=== PATIENT | female | born 1940 | race Caucasian/White ===

== ENCOUNTER 2019-11-15 21:28 | Inpatient (IN) ==
[2019-11-15] MEDS ORDERED: 0.9 % Sodium Chloride 1,000 ML IVC ONE (21:57)
[2019-11-15] MEDS ORDERED: Piperacillin/Tazobactam 3.375 GM in Water for inj. (sterile) 20 ML IVP ONE (21:57)
[2019-11-15] MEDS ORDERED: Isovue-370 500 ML BOTTLE IVP ONE (22:02)
[2019-11-15] MEDS ORDERED: Piperacillin/Tazobactam 3.375 GM in 0.9 % Sodium Chloride Mini Bag 100 ML IVPB ONE (22:05)
[2019-11-15] MEDS ORDERED: Tdap (Boostrix) Vaccine 0.5 ML SYRINGE IM ONE (22:09)
[2019-11-15 22:22] LABS: Basophils # 0.1 K/mcL (0.0-0.2); Basophils % 0.2 %; Eosinophils # 0.1 K/mcL (0.0-0.6); Eosinophils % 0.3 %; Hematocrit 30.1 % (35.3-44.9); Hemoglobin 10.1 g/dL (11.5-15.4); Lymphocytes # 2.4 K/mcL (0.6-4.6); Lymphocytes % 11.2 %; Mean Corpuscular HGB Conc 33.6 g/dL (31.6-35.5); Mean Corpuscular Hemoglobin 29.1 pg (28.0-33.3); Mean Corpuscular Volume 86.7 fL (83.0-100.0); Mean Platelet Volume 9.9 fL (9.4-12.4); Monocytes # 1.1 K/mcL (0.0-1.3); Monocytes % 5.3 %; Neutrophils # 17.7 K/mcL (1.6-8.9); Platelet Count 458 K/mcL (140-400); Red Blood Count 3.47 M/mcL (3.82-4.97); Red Cell Distribution Width 12.7 % (11.5-14.5); White Blood Count 21.6 K/mcL (4.3-11.1)
[2019-11-15 22:42] LABS: Bilirubin,Urine Small (Negative); Blood,Urine Negative (Negative); Clarity,Urine Cloudy (Clear); Color,Urine Yellow (Yellow); Glucose,Urine (UA) 250 mg/dL (Normal); Ketones,Urine Negative (Negative); Leukocyte Esterase,Urine Negative (Negative); Nitrite,Urine Negative (Negative); PH,Urine 5.5 pH Units (5.0-8.0); Protein,Urine 100 mg/dL (Neg-Trace); Specific Gravity,Urine 1.025 (1.010-1.025); Urobilinogen,Urine Normal (Normal)
[2019-11-15 22:44] LABS: Albumin 2.9 g/dL (3.5-5.7); Albumin/Globulin Ratio 0.6 (1.1-2.2); Bilirubin,Total 0.4 mg/dL (0.3-1.0); Globulin 5.1 g/dL (2.4-3.5); Potassium 3.9 mEq/L (3.5-5.1); Uric Acid 4.7 mg/dL (2.3-7.6)
[2019-11-15 22:45] LABS: Squamous Epithelial Cell,Urine Many per lpf (None-Few)
[2019-11-15 23:00] LABS: Amorphous Sediment,Urine Few per hpf (Few); Granular Casts,Urine Few per lpf (None Seen); Hyaline Casts,Urine Few per lpf (None-Few)
[2019-11-15 23:01] LABS: Bacteria,Urine Few per hpf (None-Few)
[2019-11-16] MEDS ORDERED: 0.9 % Sodium Chloride 1,000 ML IVC ONE (00:50)
[2019-11-16] MEDS ORDERED: Naloxone 0.4 MG/ML INJ IVP PRN ×2 (04:29→19:49)
[2019-11-16] MEDS ORDERED: Dextrose Gel 15 GM/37.5 ML TUBE PO PRN ×4 (04:30→19:49)
[2019-11-16] MEDS ORDERED: D5% in Water 1,000 ML IVC PRN ×2 (04:30→19:49)
[2019-11-16] MEDS ORDERED: *HR* Dextrose 50 % in Water (Syg) 50 ML SYRINGE IVP PRN ×2 (04:30→19:49)
[2019-11-16] MEDS: Insulin LISPRO 300 UNITS/3 ML VIAL SQ SCH ×2 (05:58→12:27)
[2019-11-16 06:20] LABS: Hemoglobin 9.6 g/dL (11.5-15.4); Mean Corpuscular HGB Conc 33.1 g/dL (31.6-35.5); Mean Corpuscular Hemoglobin 29.1 pg (28.0-33.3); Mean Corpuscular Volume 87.9 fL (83.0-100.0); Mean Platelet Volume 9.8 fL (9.4-12.4); Platelet Count 425 K/mcL (140-400); Red Cell Distribution Width 12.5 % (11.5-14.5); White Blood Count 18.7 K/mcL (4.3-11.1)
[2019-11-16 06:29] LABS: INR 1.3; Prothrombin Time 14.2 Seconds (9.4-12.1)
[2019-11-16 06:32] LABS: Activated Partial Thrombo Time 26.9 Seconds (26.0-36.0)
[2019-11-16 06:45] LABS: Calcium 8.2 mg/dL (8.6-10.3); Potassium 3.9 mEq/L (3.5-5.1)
[2019-11-16] MEDS ORDERED: Clindamycin 900 MG/50 ML 900 MG/50 ML IV.SOLN IVPB SCH (08:00)
[2019-11-16] MEDS ORDERED: Piperacillin/Tazobactam 3.375 GM in 0.9 % Sodium Chloride Mini Bag 100 ML IVPB SCH (08:00)
[2019-11-16 10:26] LABS: Estimated Average Glucose 194 mg/dl
[2019-11-16] MEDS ORDERED: Acetaminophen 325 MG TABLET PO ONE (12:06)
[2019-11-16] MEDS ORDERED: *HR* Propofol 200 MG/20 ML VIAL IVP ONE (15:27)
[2019-11-16] MEDS ORDERED: *HR* FentaNYL (PF) 100 MCG/2 ML VIAL ONE (15:27)
[2019-11-16] MEDS ORDERED: Lidocaine -MPF 1% 5 ML AMPUL ONE (15:28)
[2019-11-16] MEDS ORDERED: Ondansetron 4 MG/2 ML VIAL ONE (15:28)
[2019-11-16] MEDS ORDERED: Dexamethasone 4 MG/ML VIAL ONE (15:28)
[2019-11-16] MEDS ORDERED: Acetaminophen IV 1,000 MG/100 ML INFUS..BTL ONE (15:39)
[2019-11-16] MEDS ORDERED: Lidocaine 1% 20 ML MDV ONE (16:09)
[2019-11-16] MEDS ORDERED: Vancomycin 1,000 MG VIAL ONE (16:17)
[2019-11-16] MEDS ORDERED: D5% in Water 250 ML ONE (16:52)
[2019-11-16] MEDS ORDERED: Ondansetron 4 MG/2 ML VIAL IVP PRN (16:58)
[2019-11-16] MEDS ORDERED: *HR* OxyCODONE Immed Rel 5 MG TABLET PO PRN (16:58)
[2019-11-16] MEDS ORDERED: *HR* Labetalol 20 MG/4 ML SYRINGE IVP PRN (16:58)
[2019-11-16] MEDS ORDERED: *HR* PHENYLEPHRINE 1,000 MCG/10 ML SYRINGE IVP ONE (17:05)
[2019-11-16] MEDS ORDERED: Ringers Solution, Lactated 1,000 ML ONE ×2 (18:21→19:22)
[2019-11-17] MEDS ORDERED: Insulin LISPRO 300 UNITS/3 ML VIAL SQ SCH
[2019-11-17] MEDS ORDERED: Clindamycin 900 MG/50 ML 900 MG/50 ML IV.SOLN IVPB SCH
[2019-11-17] MEDS: Piperacillin/Tazobactam 3.375 GM in 0.9 % Sodium Chloride Mini Bag 100 ML IVPB SCH ×3 (02:07→22:38)
[2019-11-17 06:03] LABS: Hematocrit 26.3 % (35.3-44.9); Hemoglobin 8.7 g/dL (11.5-15.4); Mean Corpuscular HGB Conc 33.1 g/dL (31.6-35.5); Mean Corpuscular Hemoglobin 29.6 pg (28.0-33.3); Mean Corpuscular Volume 89.5 fL (83.0-100.0); Platelet Count 368 K/mcL (140-400); Red Blood Count 2.94 M/mcL (3.82-4.97); Red Cell Distribution Width 12.7 % (11.5-14.5); White Blood Count 20.4 K/mcL (4.3-11.1)
[2019-11-17 06:26] LABS: Calcium 8.2 mg/dL (8.6-10.3); Magnesium 1.8 mg/dL (1.6-2.6); Potassium 4.4 mEq/L (3.5-5.1)
[2019-11-17] MEDS ORDERED: 0.9 % Sodium Chloride 250 ML ONE (10:37)
[2019-11-17] MEDS: 0.9 % Sodium Chloride 1,000 ML IVC SCH ×2 (10:48→22:44)
[2019-11-17] MEDS: Insulin LISPRO 300 UNITS/3 ML VIAL SQ SCH ×2 (13:46→16:06)
[2019-11-17] MEDS ORDERED: Acetaminophen 325 MG TABLET PO PRN (15:05)
[2019-11-17] MEDS ORDERED: *HR* HYDROcodone/Acet 5/325 mg TABLET PO PRN (15:05)
[2019-11-17] MEDS ORDERED: *HR* OxyCODONE Immed Rel 5 MG TABLET PO PRN (15:05)
[2019-11-17] MEDS ORDERED: Naloxone 0.4 MG/ML INJ IVP PRN (15:05)
[2019-11-17] MEDS: *HR* Heparin 5,000 UNIT/ML VIAL SQ SCH (17:29)
[2019-11-17] MEDS ORDERED: Piperacillin/Tazobactam 3.375 GM VIAL ONE (22:33)
[2019-11-18 05:22] LABS: Basophils % 0.2 %; Eosinophils % 0.1 %; Hematocrit 25.6 % (35.3-44.9); Hemoglobin 8.4 g/dL (11.5-15.4); Immature Granulocytes % 1.1 % (0-4); Lymphocytes # 1.5 K/mcL (0.6-4.6); Lymphocytes % 8.6 %; Mean Corpuscular HGB Conc 32.8 g/dL (31.6-35.5); Mean Corpuscular Hemoglobin 29.3 pg (28.0-33.3); Mean Corpuscular Volume 89.2 fL (83.0-100.0); Mean Platelet Volume 9.7 fL (9.4-12.4); Monocytes # 0.9 K/mcL (0.0-1.3); Monocytes % 4.7 %; Neutrophils # 15.4 K/mcL (1.6-8.9); Platelet Count 338 K/mcL (140-400); Red Blood Count 2.87 M/mcL (3.82-4.97); Segmented Neutrophils % 85.3 %
[2019-11-18 05:40] LABS: Potassium 3.9 mEq/L (3.5-5.1)
[2019-11-18] MEDS: *HR* Heparin 5,000 UNIT/ML VIAL SQ SCH ×2 (06:09→17:10)
[2019-11-18] MEDS: Insulin LISPRO 300 UNITS/3 ML VIAL SQ SCH ×3 (07:39→17:10)
[2019-11-18] MEDS: Piperacillin/Tazobactam 3.375 GM in 0.9 % Sodium Chloride Mini Bag 100 ML IVPB SCH ×2 (07:40→20:13)
[2019-11-18] MEDS ORDERED: Aminoglycoside Consult 1 EACH MC ONE (08:38)
[2019-11-18] MEDS: 0.9 % Sodium Chloride 1,000 ML IVC SCH ×2 (10:51→23:39)
[2019-11-18] MEDS ORDERED: Ondansetron 4 MG/2 ML VIAL IVP PRN (23:07)
[2019-11-19] MEDS: *HR* Heparin 5,000 UNIT/ML VIAL SQ SCH ×2 (05:38→17:15)
[2019-11-19 07:04] LABS: Basophils % 0.1 %; Eosinophils % 0.1 %; Hematocrit 24.7 % (35.3-44.9); Hemoglobin 8.2 g/dL (11.5-15.4); Immature Granulocytes % 1.3 % (0-4); Lymphocytes # 1.7 K/mcL (0.6-4.6); Lymphocytes % 10.6 %; Mean Corpuscular HGB Conc 33.2 g/dL (31.6-35.5); Mean Corpuscular Hemoglobin 29.5 pg (28.0-33.3); Mean Corpuscular Volume 88.8 fL (83.0-100.0); Monocytes # 0.7 K/mcL (0.0-1.3); Monocytes % 4.2 %; Neutrophils # 13.1 K/mcL (1.6-8.9); Platelet Count 361 K/mcL (140-400); Red Blood Count 2.78 M/mcL (3.82-4.97); Red Cell Distribution Width 13.2 % (11.5-14.5); Segmented Neutrophils % 83.7 %; White Blood Count 15.7 K/mcL (4.3-11.1)
[2019-11-19 07:34] LABS: Calcium 7.8 mg/dL (8.6-10.3); Potassium 4.2 mEq/L (3.5-5.1)
[2019-11-19] MEDS: Piperacillin/Tazobactam 3.375 GM in 0.9 % Sodium Chloride Mini Bag 100 ML IVPB SCH (08:31)
[2019-11-19] MEDS: Insulin LISPRO 300 UNITS/3 ML VIAL SQ SCH ×3 (08:32→17:16)
[2019-11-19] MEDS: 0.9 % Sodium Chloride 1,000 ML IVC SCH (12:02)
[2019-11-19 14:38] VITALS: BP 126/73
== END 2019-11-19 19:11 | disposition short-term general hospital (02) | DRG 239 ==
LOC: 3NENU 21:28 → EMEROOARM 21:28 → 3NENU 11-16 02:34 → SUATTDRO 11-16 14:06 → 3ANU 11-16 17:37
PROVIDERS: ADMIT Family Medicine; ATTEND Family Medicine

== ENCOUNTER 2020-06-17 16:25 | Inpatient (IN) ==
[2020-06-17] MEDS ORDERED: Ondansetron 4 MG/2 ML VIAL IVP ONE (16:36)
[2020-06-17 17:41] LABS: Basophils % 0.1 %; Eosinophils % 0.1 %; Hematocrit 36.6 % (35.3-44.9); Hemoglobin 12.3 g/dL (11.5-15.4); Immature Granulocytes % 0.4 % (0-4); Lymphocytes # 1.5 K/mcL (0.6-4.6); Mean Corpuscular HGB Conc 33.6 g/dL (31.6-35.5); Mean Corpuscular Hemoglobin 29.3 pg (28.0-33.3); Mean Corpuscular Volume 87.1 fL (83.0-100.0); Mean Platelet Volume 10.2 fL (9.4-12.4); Monocytes # 0.3 K/mcL (0.0-1.3); Monocytes % 2.5 %; Neutrophils # 8.6 K/mcL (1.6-8.9); Platelet Count 252 K/mcL (140-400); Segmented Neutrophils % 82.9 %; White Blood Count 10.4 K/mcL (4.3-11.1)
[2020-06-17 17:48] LABS: Alanine Aminotransferase 253 Units/L (7-52); Albumin 3.9 g/dL (3.5-5.7); Alkaline Phosphatase 208 Units/L (34-104); Aspartate Amino Transferase 300 Units/L (13-39); BUN/Creatinine Ratio 23 (6-26); Bilirubin,Direct 0.9 mg/dL (0.0-0.2); Bilirubin,Indirect 0.6 mg/dL (0.0-1.0); Bilirubin,Total 1.5 mg/dL (0.3-1.0); Blood Urea Nitrogen 27 mg/dL (8-23); Calcium 9.5 mg/dL (8.6-10.3); Carbon Dioxide 26 mEq/L (23-29); Chloride 101 mEq/L (98-107); Globulin 4.1 g/dL (2.4-3.5); Glucose 255 mg/dL (70-105); Lipase > 1800 Units/L (11-82); Osmolality,Calculated 298 (280-300); Sodium 137 mEq/L (136-145); Troponin I < 0.03 ng/mL (< 0.04); eGFR For African Americans 53 (> 60); eGFR For Non-African Americans 43 (> 60)
[2020-06-17 18:53] LABS: INR 1.1; Prothrombin Time 12.1 Seconds (9.4-12.1)
[2020-06-17 18:55] LABS: Activated Partial Thrombo Time 33.8 Seconds (26.0-36.0)
[2020-06-17] MEDS ORDERED: Naloxone 0.4 MG/ML INJ IVP PRN (19:35)
[2020-06-17] MEDS ORDERED: Acetaminophen 325 MG TABLET PO PRN (19:35)
[2020-06-17] MEDS ORDERED: Ondansetron 4 MG/2 ML VIAL IVP PRN (19:35)
[2020-06-17] MEDS ORDERED: D5% in Water 1,000 ML IVC PRN (19:46)
[2020-06-17] MEDS ORDERED: *HR* Dextrose 50 % in Water (Vial) 50 ML VIAL IVP PRN (19:46)
[2020-06-17] MEDS ORDERED: Dextrose Gel 15 GM/37.5 ML TUBE PO PRN ×2 (19:46)
[2020-06-17] MEDS: Ringers Solution, Lactated 1,000 ML IVC SCH ×2 (20:25→21:58)
[2020-06-17] MEDS: Insulin LISPRO 300 UNITS/3 ML VIAL SQ SCH (20:28)
[2020-06-17 21:20] LABS: Estimated Average Glucose 146 mg/dl
[2020-06-17] MEDS ORDERED: *HR* Metoprolol 5 MG/5 ML VIAL IVP PRN (23:20)
[2020-06-18 01:12] LABS: Basophils % 0.2 %; Eosinophils % 0.1 %; Hematocrit 29.8 % (35.3-44.9); INR 1.2; Immature Granulocytes % 0.4 % (0-4); Lymphocytes # 2.1 K/mcL (0.6-4.6); Lymphocytes % 22.6 %; Mean Corpuscular HGB Conc 33.9 g/dL (31.6-35.5); Mean Corpuscular Hemoglobin 29.6 pg (28.0-33.3); Mean Corpuscular Volume 87.4 fL (83.0-100.0); Mean Platelet Volume 10.1 fL (9.4-12.4); Monocytes # 0.7 K/mcL (0.0-1.3); Monocytes % 6.8 %; Neutrophils # 6.6 K/mcL (1.6-8.9); Platelet Count 231 K/mcL (140-400); Prothrombin Time 13.2 Seconds (9.4-12.1); Red Blood Count 3.41 M/mcL (3.82-4.97); Red Cell Distribution Width 13.1 % (11.5-14.5); Segmented Neutrophils % 69.9 %; White Blood Count 9.5 K/mcL (4.3-11.1)
[2020-06-18 01:14] LABS: Hemoglobin 10.1 g/dL (11.5-15.4)
[2020-06-18 01:29] LABS: Albumin 3.3 g/dL (3.5-5.7); Bilirubin,Total 0.8 mg/dL (0.3-1.0); Calcium 8.7 mg/dL (8.6-10.3); Chol/HDL Ratio 2.5 (0-4.9); Globulin 3.4 g/dL (2.4-3.5); Magnesium 1.6 mg/dL (1.6-2.6); Phosphorous 2.9 mg/dL (2.7-4.5); Potassium 3.5 mEq/L (3.5-5.1); Total Protein 6.7 g/dL (6.4-8.9)
[2020-06-18 06:59] LABS: Bacteria,Urine Few per hpf (None-Few); Bilirubin,Urine Negative (Negative); Blood,Urine Negative (Negative); Clarity,Urine Clear (Clear); Color,Urine Light-Yellow (Yellow); Glucose,Urine (UA) 100 mg/dL (Normal); Ketones,Urine Negative (Negative); Leukocyte Esterase,Urine Moderate (Negative); Mucus,Urine Few per lpf (None-Few); Nitrite,Urine Negative (Negative); PH,Urine 6.5 pH Units (5.0-8.0); Protein,Urine 30 mg/dL (Neg-Trace); Specific Gravity,Urine 1.016 (1.010-1.025); Squamous Epithelial Cell,Urine Few per hpf (None-Few); Urobilinogen,Urine Normal (Normal); WBC,Urine 30-50 per hpf (0-3)
[2020-06-18] MEDS: Insulin LISPRO 300 UNITS/3 ML VIAL SQ SCH ×3 (07:18→16:57)
[2020-06-18] MEDS: Ringers Solution, Lactated 1,000 ML IVC SCH ×4 (09:00→23:52)
[2020-06-18] MEDS ORDERED: Perflutren Lipid Microsphere 1.3 ML in 0.9 % Sodium Chloride 8.7 ML IVP PRN (11:04)
[2020-06-18 11:34] LABS: Basophils % 0.2 %; Eosinophils # 0.1 K/mcL (0.0-0.6); Eosinophils % 1.1 %; Hematocrit 31.1 % (35.3-44.9); Hemoglobin 10.1 g/dL (11.5-15.4); Immature Granulocytes % 0.4 % (0-4); Lymphocytes # 2.5 K/mcL (0.6-4.6); Lymphocytes % 23.2 %; Mean Corpuscular HGB Conc 32.5 g/dL (31.6-35.5); Mean Corpuscular Hemoglobin 28.7 pg (28.0-33.3); Mean Corpuscular Volume 88.4 fL (83.0-100.0); Mean Platelet Volume 10.1 fL (9.4-12.4); Monocytes # 0.6 K/mcL (0.0-1.3); Monocytes % 5.7 %; Neutrophils # 7.4 K/mcL (1.6-8.9); Platelet Count 224 K/mcL (140-400); Red Blood Count 3.52 M/mcL (3.82-4.97); Red Cell Distribution Width 13.1 % (11.5-14.5); Segmented Neutrophils % 69.4 %; White Blood Count 10.6 K/mcL (4.3-11.1)
[2020-06-18 11:41] LABS: Albumin 3.2 g/dL (3.5-5.7); Albumin/Globulin Ratio 0.9 (1.1-2.2); Bilirubin,Direct 0.2 mg/dL (0.0-0.2); Bilirubin,Indirect 0.4 mg/dL (0.0-1.0); Bilirubin,Total 0.6 mg/dL (0.3-1.0); Calcium 9.1 mg/dL (8.6-10.3); Globulin 3.4 g/dL (2.4-3.5); Magnesium 1.5 mg/dL (1.6-2.6); Potassium 3.6 mEq/L (3.5-5.1); Total Protein 6.6 g/dL (6.4-8.9)
[2020-06-18] MEDS ORDERED: *HR* Heparin 5,000 UNIT/ML VIAL IVP ONE (11:52)
[2020-06-18] MEDS ORDERED: *HR* Heparin 5,000 UNIT/ML VIAL IVP PRN ×2 (11:52)
[2020-06-18 12:24] LABS: Hematocrit 29.9 % (35.3-44.9); Hemoglobin 9.8 g/dL (11.5-15.4); Mean Corpuscular HGB Conc 32.8 g/dL (31.6-35.5); Mean Corpuscular Hemoglobin 28.8 pg (28.0-33.3); Mean Corpuscular Volume 87.9 fL (83.0-100.0); Mean Platelet Volume 9.8 fL (9.4-12.4); Platelet Count 206 K/mcL (140-400); Red Cell Distribution Width 13.2 % (11.5-14.5)
[2020-06-18 12:28] LABS: INR 1.1; Prothrombin Time 12.8 Seconds (9.4-12.1)
[2020-06-18 12:30] LABS: Heparin anti-factor XA UFH < 0.04 IU/mL (0.30-0.70)
[2020-06-18] MEDS ORDERED: Nitroglycerin 0.4 MG TAB.SUBL SL PRN (13:02)
[2020-06-18] MEDS: Heparin 25,000UNIT/250ML 1/2NS 25,000 UNIT/250 ML IV.SOLN IVC SCH (13:48)
[2020-06-18 17:17] LABS: Hematocrit 28.8 % (35.3-44.9); Hemoglobin 9.4 g/dL (11.5-15.4)
[2020-06-18] MEDS: Gabapentin 300 MG CAPSULE PO SCH (21:15)
[2020-06-18 23:18] LABS: Hematocrit 27.6 % (35.3-44.9)
[2020-06-19 02:28] LABS: Hematocrit 28.1 % (35.3-44.9); Hemoglobin 9.2 g/dL (11.5-15.4)
[2020-06-19] MEDS: Ringers Solution, Lactated 1,000 ML IVC SCH ×4 (06:49→20:36)
[2020-06-19] MEDS: Insulin LISPRO 300 UNITS/3 ML VIAL SQ SCH ×3 (08:26→16:21)
[2020-06-19] MEDS: Aspirin 81 MG TAB.CHEW PO SCH (08:36)
[2020-06-19 10:57] LABS: Hematocrit 27.8 % (35.3-44.9); Hemoglobin 9.1 g/dL (11.5-15.4)
[2020-06-19] MEDS: Heparin 25,000UNIT/250ML 1/2NS 25,000 UNIT/250 ML IV.SOLN IVC SCH ×2 (11:49→21:30)
[2020-06-19 16:11] LABS: Hematocrit 27.6 % (35.3-44.9); Hemoglobin 9.1 g/dL (11.5-15.4)
[2020-06-19] MEDS: Gabapentin 300 MG CAPSULE PO SCH (20:33)
[2020-06-19 22:16] LABS: Hematocrit 27.4 % (35.3-44.9)
[2020-06-20 03:12] LABS: Hematocrit 28.3 % (35.3-44.9); Hemoglobin 9.3 g/dL (11.5-15.4)
[2020-06-20 03:13] LABS: Basophils % 0.3 %; Eosinophils # 0.3 K/mcL (0.0-0.6); Eosinophils % 2.9 %; Hematocrit 28.6 % (35.3-44.9); Hemoglobin 9.3 g/dL (11.5-15.4); Immature Granulocytes % 0.4 % (0-4); Lymphocytes % 26.2 %; Mean Corpuscular HGB Conc 32.5 g/dL (31.6-35.5); Mean Corpuscular Hemoglobin 28.4 pg (28.0-33.3); Mean Corpuscular Volume 87.5 fL (83.0-100.0); Monocytes % 8.8 %; Neutrophils # 7.1 K/mcL (1.6-8.9); Platelet Count 204 K/mcL (140-400); Red Blood Count 3.27 M/mcL (3.82-4.97); Red Cell Distribution Width 12.8 % (11.5-14.5); Segmented Neutrophils % 61.4 %; White Blood Count 11.5 K/mcL (4.3-11.1)
[2020-06-20 03:23] LABS: BUN/Creatinine Ratio 15 (6-26); Blood Urea Nitrogen 15 mg/dL (8-23); Calcium 8.5 mg/dL (8.6-10.3); Carbon Dioxide 25 mEq/L (23-29); Chloride 105 mEq/L (98-107); Glucose 70 mg/dL (70-105); Lipase 68 Units/L (11-82); Magnesium 1.7 mg/dL (1.6-2.6); Osmolality,Calculated 285 (280-300); Sodium 138 mEq/L (136-145); eGFR For African Americans > 60 (> 60); eGFR For Non-African Americans 55 (> 60)
[2020-06-20] MEDS: Ringers Solution, Lactated 1,000 ML IVC SCH ×3 (03:34→20:14)
[2020-06-20] MEDS: Aspirin 81 MG TAB.CHEW PO SCH (09:21)
[2020-06-20] MEDS: Insulin LISPRO 300 UNITS/3 ML VIAL SQ SCH ×3 (09:22→16:24)
[2020-06-20 10:27] LABS: Hematocrit 29.9 % (35.3-44.9); Hemoglobin 9.9 g/dL (11.5-15.4)
[2020-06-20] MEDS: Ampicillin/Sulbactam 3,000 MG in 0.9 % Sodium Chloride Mini Bag 100 ML IVPB SCH ×3 (12:37→23:58)
[2020-06-20 16:24] LABS: Hematocrit 28.8 % (35.3-44.9); Hemoglobin 9.6 g/dL (11.5-15.4)
[2020-06-20] MEDS: Gabapentin 300 MG CAPSULE PO SCH (20:14)
[2020-06-21] MEDS: Ringers Solution, Lactated 1,000 ML IVC SCH ×3 (03:04→22:52)
[2020-06-21 05:24] LABS: Basophils % 0.3 %; Eosinophils # 0.3 K/mcL (0.0-0.6); Eosinophils % 2.6 %; Hematocrit 28.8 % (35.3-44.9); Hemoglobin 9.5 g/dL (11.5-15.4); Immature Granulocytes % 0.4 % (0-4); Lymphocytes # 2.3 K/mcL (0.6-4.6); Lymphocytes % 22.9 %; Mean Corpuscular Hemoglobin 28.5 pg (28.0-33.3); Mean Corpuscular Volume 86.5 fL (83.0-100.0); Mean Platelet Volume 9.8 fL (9.4-12.4); Monocytes # 0.9 K/mcL (0.0-1.3); Monocytes % 8.7 %; Neutrophils # 6.4 K/mcL (1.6-8.9); Platelet Count 205 K/mcL (140-400); Red Blood Count 3.33 M/mcL (3.82-4.97); Red Cell Distribution Width 12.8 % (11.5-14.5); Segmented Neutrophils % 65.1 %; White Blood Count 9.9 K/mcL (4.3-11.1)
[2020-06-21 05:38] LABS: BUN/Creatinine Ratio 10 (6-26); Blood Urea Nitrogen 10 mg/dL (8-23); Calcium 8.6 mg/dL (8.6-10.3); Carbon Dioxide 26 mEq/L (23-29); Chloride 104 mEq/L (98-107); Glucose 77 mg/dL (70-105); Magnesium 1.6 mg/dL (1.6-2.6); Osmolality,Calculated 284 (280-300); Potassium 3.2 mEq/L (3.5-5.1); Sodium 138 mEq/L (136-145); eGFR For African Americans > 60 (> 60); eGFR For Non-African Americans 51 (> 60)
[2020-06-21] MEDS: Ampicillin/Sulbactam 3,000 MG in 0.9 % Sodium Chloride Mini Bag 100 ML IVPB SCH ×2 (05:51→12:08)
[2020-06-21] MEDS: Aspirin 81 MG TAB.CHEW PO SCH (07:21)
[2020-06-21] MEDS: Insulin LISPRO 300 UNITS/3 ML VIAL SQ SCH ×2 (07:21→12:12)
[2020-06-21] MEDS ORDERED: Potassium Chloride 40 MEQ, Lidocaine 1% 2 ML in 0.9 % Sodium Chloride 500 ML IVPB ONE (09:51)
[2020-06-21] MEDS ORDERED: Ringers Solution, Lactated 1,000 ML IVC SCH (09:52)
[2020-06-21] MEDS ORDERED: *HR* FentaNYL (PF) 100 MCG/2 ML VIAL ONE ×2 (13:22→15:54)
[2020-06-21] MEDS ORDERED: *HR* Propofol 200 MG/20 ML VIAL IVP ONE ×2 (13:22→15:54)
[2020-06-21] MEDS ORDERED: Dexamethasone 4 MG/ML VIAL ONE ×2 (13:26→15:54)
[2020-06-21] MEDS ORDERED: Lidocaine -MPF 2% 2 ML VIAL ONE ×2 (13:26→15:54)
[2020-06-21] MEDS ORDERED: Ondansetron 4 MG/2 ML VIAL ONE ×2 (13:26→15:54)
[2020-06-21] MEDS ORDERED: Lidocaine -MPF 4% 5 ML AMPUL ONE (13:26)
[2020-06-21] MEDS ORDERED: *HR* Rocuronium Bromide 50 MG/5 ML VIAL ONE ×2 (13:26→15:54)
[2020-06-21] MEDS ORDERED: *HR* Succinylcholine 200 MG/10 ML VIAL IVP ONE ×2 (13:28→15:54)
[2020-06-21] MEDS ORDERED: Isovue-300 50ML VIAL ONE (16:01)
[2020-06-21] MEDS ORDERED: *HR* PHENYLEPHRINE 1,000 MCG/10 ML SYRINGE IVP ONE ×2 (16:53→17:40)
[2020-06-21] MEDS ORDERED: EPHEDrine 50 MG/ML VIAL ONE (17:40)
[2020-06-21] MEDS ORDERED: Acetaminophen IV 1,000 MG/100 ML INFUS..BTL IVPB ONE (17:46)
[2020-06-21] MEDS ORDERED: *HR* Labetalol 20 MG/4 ML SYRINGE IVP PRN ×2 (17:46→19:09)
[2020-06-21] MEDS ORDERED: *HR* Promethazine 25 MG/ML VIAL IVP PRN (17:46)
[2020-06-21] MEDS ORDERED: *HR* OxyCODONE Immed Rel 5 MG TABLET PO PRN (17:46)
[2020-06-21] MEDS ORDERED: *HR* HYDROmorphone 2 MG TABLET PO PRN (17:46)
[2020-06-21] MEDS ORDERED: *HR* HYDROmorphone PF 0.5 MG/0.5 ML SYRINGE IVP PRN (17:46)
[2020-06-21] MEDS ORDERED: Dextrose Gel 15 GM/37.5 ML TUBE PO PRN ×2 (19:09)
[2020-06-21] MEDS ORDERED: *HR* Metoprolol 5 MG/5 ML VIAL IVP PRN (19:09)
[2020-06-21] MEDS ORDERED: *HR* Dextrose 50 % in Water (Vial) 50 ML VIAL IVP PRN (19:09)
[2020-06-21] MEDS ORDERED: *HR* OxyCODONE/APAP 5/325 TABLET PO PRN (19:09)
[2020-06-21] MEDS ORDERED: Ondansetron 4 MG/2 ML VIAL IVP PRN (19:09)
[2020-06-21] MEDS ORDERED: Naloxone 0.4 MG/ML INJ IVP PRN (19:09)
[2020-06-21] MEDS ORDERED: D5% in Water 1,000 ML IVC PRN (19:09)
[2020-06-21] MEDS ORDERED: Insulin LISPRO 300 UNITS/3 ML VIAL SQ SCH ×2 (21:00)
[2020-06-21] MEDS: Gabapentin 300 MG CAPSULE PO SCH (22:52)
[2020-06-22] MEDS: Ampicillin/Sulbactam 3,000 MG in 0.9 % Sodium Chloride Mini Bag 100 ML IVPB SCH ×2 (01:00→05:21)
[2020-06-22 06:16] LABS: Hematocrit 23.9 % (35.3-44.9); Mean Corpuscular HGB Conc 31.8 g/dL (31.6-35.5); Mean Corpuscular Hemoglobin 28.4 pg (28.0-33.3); Mean Corpuscular Volume 89.2 fL (83.0-100.0); Platelet Count 230 K/mcL (140-400); Red Blood Count 2.68 M/mcL (3.82-4.97); Red Cell Distribution Width 13.4 % (11.5-14.5); White Blood Count 12.3 K/mcL (4.3-11.1)
[2020-06-22 06:17] LABS: Hemoglobin 7.6 g/dL (11.5-15.4)
[2020-06-22 06:44] LABS: Calcium 8.1 mg/dL (8.6-10.3); Magnesium 1.8 mg/dL (1.6-2.6); Potassium 4.3 mEq/L (3.5-5.1)
[2020-06-22] MEDS ORDERED: Ringers Solution, Lactated 500 ML IVC ONE (08:41)
[2020-06-22] MEDS: Ringers Solution, Lactated 1,000 ML IVC SCH ×3 (09:25→15:39)
[2020-06-22] MEDS: Insulin LISPRO 300 UNITS/3 ML VIAL SQ SCH ×3 (09:38→16:49)
[2020-06-22] MEDS: Nitroglycerin 0.4 MG TAB.SUBL SL PRN ×2 (14:08→14:13)
[2020-06-22] MEDS ORDERED: *HR* Promethazine 25 MG/ML VIAL IVP PRN (14:10)
[2020-06-22] MEDS ORDERED: Famotidine 20 MG TABLET PO ONE (14:25)
[2020-06-22] MEDS ORDERED: Apixaban 5 MG TABLET PO SCH (14:30)
[2020-06-22] MEDS ORDERED: Pantoprazole 40 MG VIAL IVP ONE (14:30)
[2020-06-22 15:21] LABS: Hematocrit 22.9 % (35.3-44.9); Hemoglobin 7.5 g/dL (11.5-15.4); Mean Corpuscular HGB Conc 32.8 g/dL (31.6-35.5); Mean Corpuscular Hemoglobin 29.1 pg (28.0-33.3); Mean Corpuscular Volume 88.8 fL (83.0-100.0); Mean Platelet Volume 9.8 fL (9.4-12.4); Platelet Count 268 K/mcL (140-400); Red Blood Count 2.58 M/mcL (3.82-4.97); Red Cell Distribution Width 13.4 % (11.5-14.5); White Blood Count 13.9 K/mcL (4.3-11.1)
[2020-06-22] MEDS ORDERED: Acetaminophen IV 500 MG/50 ML INFUS..BTL IVPB ONE (17:04)
[2020-06-22] MEDS ORDERED: Ampicillin/Sulbactam 3,000 MG in 0.9 % Sodium Chloride Mini Bag 100 ML IVPB SCH (18:00)
[2020-06-22] MEDS ORDERED: 0.9 % Sodium Chloride 1,000 ML IVC ONE (19:25)
[2020-06-22] MEDS ORDERED: Ringers Solution, Lactated 1,000 ML IVC ONE (19:35)
[2020-06-22 19:48] LABS: Hematocrit 21.3 % (35.3-44.9); Hemoglobin 6.9 g/dL (11.5-15.4); Mean Corpuscular HGB Conc 32.4 g/dL (31.6-35.5); Mean Corpuscular Hemoglobin 29.1 pg (28.0-33.3); Mean Corpuscular Volume 89.9 fL (83.0-100.0); Mean Platelet Volume 10.1 fL (9.4-12.4); Platelet Count 273 K/mcL (140-400); Red Blood Count 2.37 M/mcL (3.82-4.97); Red Cell Distribution Width 13.4 % (11.5-14.5)
[2020-06-22 20:12] LABS: Magnesium 1.8 mg/dL (1.6-2.6); Phosphorous 4.3 mg/dL (2.7-4.5)
[2020-06-22 20:15] LABS: Calcium 7.9 mg/dL (8.6-10.3); Potassium 3.9 mEq/L (3.5-5.1); Troponin I 0.97 ng/mL (< 0.04)
[2020-06-22] MEDS ORDERED: Amiodarone Premix 150 MG/100 ML BAG IVPB ONE (20:30)
[2020-06-22] MEDS ORDERED: Amiodarone Premix 360 MG/200 ML BAG IVC ONE (21:00)
[2020-06-22] MEDS: Gabapentin 300 MG CAPSULE PO SCH (21:12)
[2020-06-22] MEDS ORDERED: Naloxone 0.4 MG/ML INJ IVP PRN (22:18)
[2020-06-22] MEDS ORDERED: D5% in Water 1,000 ML IVC PRN (22:18)
[2020-06-22] MEDS ORDERED: Ondansetron 4 MG/2 ML VIAL IVP PRN (22:18)
[2020-06-22] MEDS ORDERED: Dextrose Gel 15 GM/37.5 ML TUBE PO PRN ×2 (22:18)
[2020-06-22] MEDS ORDERED: *HR* Metoprolol 5 MG/5 ML VIAL IVP PRN (22:18)
[2020-06-22] MEDS ORDERED: *HR* Dextrose 50 % in Water (Vial) 50 ML VIAL IVP PRN (22:18)
[2020-06-22] MEDS ORDERED: *HR* OxyCODONE/APAP 5/325 TABLET PO PRN (22:18)
[2020-06-22] MEDS ORDERED: Nitroglycerin 0.4 MG TAB.SUBL SL PRN (22:18)
[2020-06-22] MEDS ORDERED: Ringers Solution, Lactated 1,000 ML IVC SCH (22:18)
[2020-06-23] MEDS: Ringers Solution, Lactated 1,000 ML IVC SCH ×3 (02:43→22:01)
[2020-06-23] MEDS ORDERED: Amiodarone Premix 360 MG/200 ML BAG IVC SCH (03:00)
[2020-06-23] MEDS: Amiodarone Premix 360 MG/200 ML BAG IVC SCH ×2 (03:07→15:04)
[2020-06-23 03:30] LABS: Basophils % 0.2 %; Immature Granulocytes % 0.8 % (0-4); Lymphocytes # 1.6 K/mcL (0.6-4.6); Lymphocytes % 12.2 %; Mean Corpuscular HGB Conc 31.3 g/dL (31.6-35.5); Mean Corpuscular Hemoglobin 31.1 pg (28.0-33.3); Monocytes # 1.1 K/mcL (0.0-1.3); Monocytes % 8.3 %; Neutrophils # 10.2 K/mcL (1.6-8.9); Nucleated Red Blood Cells 0.2 /100 WBC (0); Platelet Count 164 K/mcL (140-400); Red Blood Count 3.12 M/mcL (3.82-4.97); Segmented Neutrophils % 78.5 %
[2020-06-23 04:06] LABS: Troponin I 4.55 ng/mL (< 0.04)
[2020-06-23 04:18] LABS: Albumin 2.7 g/dL (3.5-5.7); Albumin/Globulin Ratio 0.9 (1.1-2.2); Bilirubin,Total 0.8 mg/dL (0.3-1.0); Calcium 7.7 mg/dL (8.6-10.3); Globulin 2.9 g/dL (2.4-3.5); Magnesium 1.7 mg/dL (1.6-2.6); Phosphorous 4.9 mg/dL (2.7-4.5); Potassium 4.3 mEq/L (3.5-5.1); Total Protein 5.6 g/dL (6.4-8.9)
[2020-06-23 04:22] LABS: Hemoglobin 9.7 g/dL (11.5-15.4); Mean Corpuscular Volume 99.4 fL (83.0-100.0)
[2020-06-23] MEDS ORDERED: Insulin LISPRO 300 UNITS/3 ML VIAL SQ SCH ×2 (07:30→21:00)
[2020-06-23 09:44] LABS: Hematocrit 29.8 % (35.3-44.9); Hemoglobin 9.7 g/dL (11.5-15.4)
[2020-06-23 13:24] LABS: Albumin 2.7 g/dL (3.5-5.7); Albumin/Globulin Ratio 0.9 (1.1-2.2); Bilirubin,Direct 0.2 mg/dL (0.0-0.2); Bilirubin,Indirect 0.4 mg/dL (0.0-1.0); Bilirubin,Total 0.6 mg/dL (0.3-1.0); Globulin 2.9 g/dL (2.4-3.5); Total Protein 5.6 g/dL (6.4-8.9)
[2020-06-23] MEDS: Aspirin 81 MG TAB.CHEW PO SCH (13:33)
[2020-06-23] MEDS: Insulin LISPRO 300 UNITS/3 ML VIAL SQ SCH ×3 (13:58→21:13)
[2020-06-23 14:06] LABS: Hematocrit 28.3 % (35.3-44.9); Hemoglobin 9.5 g/dL (11.5-15.4); Mean Corpuscular HGB Conc 33.6 g/dL (31.6-35.5); Mean Corpuscular Hemoglobin 30.2 pg (28.0-33.3); Mean Corpuscular Volume 89.8 fL (83.0-100.0); Platelet Count 190 K/mcL (140-400); Red Blood Count 3.15 M/mcL (3.82-4.97); Red Cell Distribution Width 13.9 % (11.5-14.5); White Blood Count 12.8 K/mcL (4.3-11.1)
[2020-06-23] MEDS: Ampicillin/Sulbactam 3,000 MG in 0.9 % Sodium Chloride Mini Bag 100 ML IVPB SCH ×3 (18:10→18:15)
[2020-06-23 18:24] LABS: Hematocrit 27.2 % (35.3-44.9); Hemoglobin 9.2 g/dL (11.5-15.4); Mean Corpuscular HGB Conc 33.8 g/dL (31.6-35.5); Mean Corpuscular Hemoglobin 30.6 pg (28.0-33.3); Mean Corpuscular Volume 90.4 fL (83.0-100.0); Mean Platelet Volume 10.2 fL (9.4-12.4); Platelet Count 177 K/mcL (140-400); Red Blood Count 3.01 M/mcL (3.82-4.97); Red Cell Distribution Width 13.9 % (11.5-14.5); White Blood Count 12.4 K/mcL (4.3-11.1)
[2020-06-23] MEDS: Gabapentin 300 MG CAPSULE PO SCH (20:48)
[2020-06-23] MEDS ORDERED: Ringers Solution, Lactated 500 ML IVC ONE (21:06)
[2020-06-24] MEDS: Ampicillin/Sulbactam 3,000 MG in 0.9 % Sodium Chloride Mini Bag 100 ML IVPB SCH ×2 (05:01→17:22)
[2020-06-24 07:07] LABS: Basophils % 0.2 %; Eosinophils # 0.1 K/mcL (0.0-0.6); Eosinophils % 0.7 %; Hematocrit 26.4 % (35.3-44.9); Hemoglobin 8.7 g/dL (11.5-15.4); Immature Granulocytes % 1.1 % (0-4); Lymphocytes # 2.2 K/mcL (0.6-4.6); Lymphocytes % 19.4 %; Mean Corpuscular Hemoglobin 30.6 pg (28.0-33.3); Mean Platelet Volume 10.5 fL (9.4-12.4); Monocytes # 0.9 K/mcL (0.0-1.3); Monocytes % 7.8 %; Neutrophils # 8.1 K/mcL (1.6-8.9); Platelet Count 156 K/mcL (140-400); Red Blood Count 2.84 M/mcL (3.82-4.97); Segmented Neutrophils % 70.8 %; White Blood Count 11.4 K/mcL (4.3-11.1)
[2020-06-24 07:50] LABS: Alanine Aminotransferase 790 Units/L (7-52)
[2020-06-24 07:51] LABS: Albumin 2.5 g/dL (3.5-5.7); Alkaline Phosphatase 80 Units/L (34-104); Aspartate Amino Transferase 532 Units/L (13-39); BUN/Creatinine Ratio 18 (6-26); Bilirubin,Total 0.7 mg/dL (0.3-1.0); Blood Urea Nitrogen 32 mg/dL (8-23); Calcium 7.7 mg/dL (8.6-10.3); Carbon Dioxide 24 mEq/L (23-29); Chloride 106 mEq/L (98-107); Globulin 2.6 g/dL (2.4-3.5); Glucose 138 mg/dL (70-105); Magnesium 1.7 mg/dL (1.6-2.6); Osmolality,Calculated 291 (280-300); Phosphorous 2.6 mg/dL (2.7-4.5); Potassium 3.6 mEq/L (3.5-5.1); Sodium 136 mEq/L (136-145); Total Protein 5.1 g/dL (6.4-8.9); eGFR For African Americans 34 (> 60); eGFR For Non-African Americans 28 (> 60)
[2020-06-24] MEDS: Aspirin 81 MG TAB.CHEW PO SCH (07:52)
[2020-06-24 07:53] LABS: Hepatitis B Surface Antigen Nonreactive (Nonreactive)
[2020-06-24] MEDS: Ringers Solution, Lactated 1,000 ML IVC SCH ×2 (07:59→17:25)
[2020-06-24] MEDS: Insulin LISPRO 300 UNITS/3 ML VIAL SQ SCH ×4 (08:09→22:18)
[2020-06-24 08:22] LABS: Hepatitis C Virus Antibody Nonreactive (Nonreactive)
[2020-06-24 08:23] LABS: Hepatitis B Core IgM Nonreactive (Nonreactive)
[2020-06-24 08:25] LABS: Hepatitis A Antibody IgM Nonreactive (Nonreactive)
[2020-06-24 18:53] LABS: Immature Reticulocyte % 18.6 % (11.0-38.0); Retculocyte # 0.04 M/mcL (0.05-0.10); Reticulocyte % 1.5 % (1.6-2.8)
[2020-06-24 19:23] LABS: Ferritin > 1500 ng/mL (10-120)
[2020-06-24 20:06] LABS: Folate 18.9 ng/mL (3.0-16.0)
[2020-06-24] MEDS: Gabapentin 300 MG CAPSULE PO SCH (22:14)
[2020-06-25 01:14] LABS: Basophils % 0.2 %; Eosinophils # 0.1 K/mcL (0.0-0.6); Eosinophils % 1.3 %; Hematocrit 26.5 % (35.3-44.9); Hemoglobin 8.6 g/dL (11.5-15.4); Immature Granulocytes % 1.1 % (0-4); Lymphocytes # 2.4 K/mcL (0.6-4.6); Lymphocytes % 23.1 %; Mean Corpuscular HGB Conc 32.5 g/dL (31.6-35.5); Mean Corpuscular Hemoglobin 30.8 pg (28.0-33.3); Mean Platelet Volume 10.5 fL (9.4-12.4); Monocytes # 0.8 K/mcL (0.0-1.3); Monocytes % 7.5 %; Neutrophils # 6.9 K/mcL (1.6-8.9); Platelet Count 166 K/mcL (140-400); Red Blood Count 2.79 M/mcL (3.82-4.97); Red Cell Distribution Width 14.1 % (11.5-14.5); Segmented Neutrophils % 66.8 %; White Blood Count 10.4 K/mcL (4.3-11.1)
[2020-06-25 01:33] LABS: Calcium 7.4 mg/dL (8.6-10.3); Phosphorous 2.3 mg/dL (2.7-4.5); Potassium 3.6 mEq/L (3.5-5.1)
[2020-06-25] MEDS: Ampicillin/Sulbactam 3,000 MG in 0.9 % Sodium Chloride Mini Bag 100 ML IVPB SCH ×2 (05:53→16:35)
[2020-06-25] MEDS: Insulin LISPRO 300 UNITS/3 ML VIAL SQ SCH ×4 (07:52→20:20)
[2020-06-25] MEDS: Aspirin 81 MG TAB.CHEW PO SCH (07:52)
[2020-06-25] MEDS: Gabapentin 300 MG CAPSULE PO SCH (20:15)
[2020-06-26 03:10] LABS: Basophils % 0.3 %; Eosinophils # 0.2 K/mcL (0.0-0.6); Eosinophils % 2.1 %; Hematocrit 28.2 % (35.3-44.9); Hemoglobin 9.1 g/dL (11.5-15.4); Immature Granulocytes % 1.1 % (0-4); Lymphocytes # 2.6 K/mcL (0.6-4.6); Lymphocytes % 23.3 %; Mean Corpuscular HGB Conc 32.3 g/dL (31.6-35.5); Mean Corpuscular Hemoglobin 30.7 pg (28.0-33.3); Mean Corpuscular Volume 95.3 fL (83.0-100.0); Mean Platelet Volume 10.2 fL (9.4-12.4); Monocytes # 0.9 K/mcL (0.0-1.3); Monocytes % 8.3 %; Neutrophils # 7.2 K/mcL (1.6-8.9); Platelet Count 210 K/mcL (140-400); Red Blood Count 2.96 M/mcL (3.82-4.97); Red Cell Distribution Width 14.4 % (11.5-14.5); Segmented Neutrophils % 64.9 %; White Blood Count 11.1 K/mcL (4.3-11.1)
[2020-06-26 03:27] LABS: Calcium 7.4 mg/dL (8.6-10.3); Potassium 3.5 mEq/L (3.5-5.1)
[2020-06-26] MEDS: Ampicillin/Sulbactam 3,000 MG in 0.9 % Sodium Chloride Mini Bag 100 ML IVPB SCH ×2 (05:21→16:51)
[2020-06-26] MEDS: Aspirin 81 MG TAB.CHEW PO SCH (07:38)
[2020-06-26] MEDS: Insulin LISPRO 300 UNITS/3 ML VIAL SQ SCH ×4 (07:55→20:42)
[2020-06-26] MEDS ORDERED: Furosemide 40 MG/4 ML VIAL IVP ONE (10:57)
[2020-06-26] MEDS: Gabapentin 300 MG CAPSULE PO SCH (20:46)
[2020-06-27 04:45] LABS: Hematocrit 31.3 % (35.3-44.9); Hemoglobin 10.1 g/dL (11.5-15.4); Mean Corpuscular HGB Conc 32.3 g/dL (31.6-35.5); Mean Corpuscular Hemoglobin 30.2 pg (28.0-33.3); Mean Corpuscular Volume 93.7 fL (83.0-100.0); Mean Platelet Volume 9.8 fL (9.4-12.4); Platelet Count 241 K/mcL (140-400); Red Blood Count 3.34 M/mcL (3.82-4.97); Red Cell Distribution Width 14.4 % (11.5-14.5); White Blood Count 13.1 K/mcL (4.3-11.1)
[2020-06-27 05:04] LABS: Calcium 7.8 mg/dL (8.6-10.3); Potassium 3.5 mEq/L (3.5-5.1)
[2020-06-27] MEDS: Ampicillin/Sulbactam 3,000 MG in 0.9 % Sodium Chloride Mini Bag 100 ML IVPB SCH (05:17)
[2020-06-27] MEDS: Insulin LISPRO 300 UNITS/3 ML VIAL SQ SCH ×4 (07:42→22:21)
[2020-06-27] MEDS: Aspirin 81 MG TAB.CHEW PO SCH (08:03)
[2020-06-27] MEDS: Apixaban 5 MG TABLET PO SCH (22:20)
[2020-06-27] MEDS: Gabapentin 300 MG CAPSULE PO SCH (22:21)
[2020-06-28 01:24] LABS: Basophils % 0.3 %; Eosinophils # 0.3 K/mcL (0.0-0.6); Eosinophils % 2.3 %; Hematocrit 28.7 % (35.3-44.9); Hemoglobin 9.1 g/dL (11.5-15.4); Immature Granulocytes % 1.1 % (0-4); Lymphocytes # 2.8 K/mcL (0.6-4.6); Mean Corpuscular HGB Conc 31.7 g/dL (31.6-35.5); Mean Corpuscular Hemoglobin 29.4 pg (28.0-33.3); Mean Corpuscular Volume 92.9 fL (83.0-100.0); Monocytes # 1.3 K/mcL (0.0-1.3); Monocytes % 11.2 %; Platelet Count 241 K/mcL (140-400); Red Blood Count 3.09 M/mcL (3.82-4.97); Red Cell Distribution Width 14.2 % (11.5-14.5); Segmented Neutrophils % 61.1 %; White Blood Count 11.5 K/mcL (4.3-11.1)
[2020-06-28 01:28] LABS: INR 1.2; Prothrombin Time 13.9 Seconds (9.4-12.1)
[2020-06-28 01:44] LABS: Calcium 7.5 mg/dL (8.6-10.3); Potassium 3.4 mEq/L (3.5-5.1)
[2020-06-28 01:45] LABS: Albumin 2.3 g/dL (3.5-5.7); Albumin/Globulin Ratio 0.8 (1.1-2.2); Bilirubin,Direct 0.2 mg/dL (0.0-0.2); Bilirubin,Indirect 0.5 mg/dL (0.0-1.0); Bilirubin,Total 0.7 mg/dL (0.3-1.0); Globulin 2.8 g/dL (2.4-3.5); Total Protein 5.1 g/dL (6.4-8.9)
[2020-06-28] MEDS: Apixaban 5 MG TABLET PO SCH (08:30)
[2020-06-28] MEDS: Insulin LISPRO 300 UNITS/3 ML VIAL SQ SCH ×2 (08:32→12:28)
[2020-06-28] MEDS: Aspirin 81 MG TAB.CHEW PO SCH (08:32)
[2020-06-28] MEDS ORDERED: *HR* Norepinephrine 4 MG/4 ML VIAL IVC ONE (16:42)
[2020-06-28] MEDS ORDERED: 0.9 % Sodium Chloride 250 ML ONE (16:42)
[2020-06-28] MEDS ORDERED: Ringers Solution, Lactated 500 ML ONE (16:47)
[2020-06-28] MEDS: Norepinephrine 4 MG/254 ML IV.SOLN IVC SCH ×2 (17:18→20:56)
[2020-06-28 17:45] LABS: Basophils % 0.3 %; Eosinophils # 0.4 K/mcL (0.0-0.6); Eosinophils % 2.5 %; Hematocrit 23.5 % (35.3-44.9); Hemoglobin 7.6 g/dL (11.5-15.4); Lymphocytes # 6.7 K/mcL (0.6-4.6); Mean Corpuscular HGB Conc 32.3 g/dL (31.6-35.5); Mean Corpuscular Hemoglobin 31.1 pg (28.0-33.3); Mean Corpuscular Volume 96.3 fL (83.0-100.0); Mean Platelet Volume 10.2 fL (9.4-12.4); Monocytes # 1.1 K/mcL (0.0-1.3); Monocytes % 7.6 %; Neutrophils # 6.2 K/mcL (1.6-8.9); Platelet Count 273 K/mcL (140-400); Red Blood Count 2.44 M/mcL (3.82-4.97); Red Cell Distribution Width 14.3 % (11.5-14.5); Segmented Neutrophils % 41.6 %; White Blood Count 14.8 K/mcL (4.3-11.1)
[2020-06-28 17:55] LABS: Platelet Estimate Normal (Normal); Reactive Lymphocytes Present (Not Present)
[2020-06-28] MEDS ORDERED: Insulin LISPRO 300 UNITS/3 ML VIAL SQ SCH (18:00)
[2020-06-28 18:02] LABS: INR 1.4; Prothrombin Time 16.1 Seconds (9.4-12.1)
[2020-06-28 18:06] LABS: Albumin/Globulin Ratio 0.9 (1.1-2.2); Bilirubin,Total 0.6 mg/dL (0.3-1.0); Calcium 7.2 mg/dL (8.6-10.3); Globulin 2.3 g/dL (2.4-3.5); Potassium 3.3 mEq/L (3.5-5.1); Total Protein 4.3 g/dL (6.4-8.9)
[2020-06-28 18:10] LABS: Troponin I 1.01 ng/mL (< 0.04)
[2020-06-28] MEDS ORDERED: 0.9 % Sodium Chloride 250 ML IVC SCH ×2 (18:30→21:30)
[2020-06-28] MEDS ORDERED: Isovue-370 500 ML BOTTLE IVP ONE (18:55)
[2020-06-28] MEDS ORDERED: Ringers Solution, Lactated 1,000 ML ONE ×2 (19:23→23:54)
[2020-06-28] MEDS ORDERED: Ringers Solution, Lactated 1,000 ML IVC ONE ×2 (19:24→21:26)
[2020-06-28] MEDS: Phenylephrine 10 MG in 0.9 % Sodium Chloride 250 ML IVC SCH ×2 (21:24→23:38)
[2020-06-28] MEDS: Gabapentin 300 MG CAPSULE PO SCH (21:25)
[2020-06-28] MEDS ORDERED: *HR* Promethazine 25 MG/ML VIAL IVP PRN (21:29)
[2020-06-28 21:32] LABS: Hematocrit 35.1 % (35.3-44.9); Hemoglobin 11.2 g/dL (11.5-15.4); Mean Corpuscular HGB Conc 31.9 g/dL (31.6-35.5); Mean Corpuscular Hemoglobin 29.4 pg (28.0-33.3); Mean Corpuscular Volume 92.1 fL (83.0-100.0); Nucleated Red Blood Cells 0.1 /100 WBC (0); Platelet Count 224 K/mcL (140-400); Red Blood Count 3.81 M/mcL (3.82-4.97); Red Cell Distribution Width 14.8 % (11.5-14.5); White Blood Count 27.7 K/mcL (4.3-11.1)
[2020-06-28 21:37] LABS: INR 1.6; Prothrombin Time 18.6 Seconds (9.4-12.1)
[2020-06-28 21:49] LABS: Large Platelets Present (Not Present); Lymphocytes # 3.3 K/mcL (0.6-4.6); Monocytes # 2.2 K/mcL (0.0-1.3); Neutrophils # 22.2 K/mcL (1.6-8.9); Platelet Estimate Normal (Normal)
[2020-06-28] MEDS ORDERED: Piperacillin/Tazobactam 3.375 GM in 0.9 % Sodium Chloride Mini Bag 100 ML IVPB SCH (22:00)
[2020-06-28 23:37] VITALS: BP 106/89
[2020-06-28] MEDS ORDERED: Vasopressin 40 UNIT in D5% in Water 100 ML IVC SCH (23:45)
[2020-06-28] MEDS ORDERED: Albumin Human 5% 12.5 GM/250 ML IV.SOLN ONE (23:55)
[2020-06-28] MEDS ORDERED: Albumin 25% 25gram/100mL 25 GM/100 ML IV.SOLN IVPB ONE (23:59)
[2020-06-29] MEDS ORDERED: Ringers Solution, Lactated 1,000 ML IVC ONE (00:02)
[2020-06-29] MEDS ORDERED: *HR* Atropine Sulfate 1 MG/10 ML SYRINGE ONE (00:08)
== END 2020-06-29 02:01 | disposition expired | DRG 417 ==
LOC: 3BNU 16:25 → EMEROOARM 16:25 → SUATTDRO 19:09 → 3BNU 19:40 → SUATTDRO 06-20 14:35 → 3ANU 06-20 17:08 → 2NNU 06-22 20:15 → 2ANU 06-25 13:43 → ICNU 06-28 16:34
PROVIDERS: ADMIT Student in an Organized Health Care Education/Training Program; ATTEND Internal Medicine